=== PATIENT | female | born 1935 | race Caucasian/White ===

== ENCOUNTER 2018-06-19 22:53 | Emergency (ER) | payer OTHER ==
[2018-06-19] MEDS: SODIUM CHLORIDE 0.9% 1L BAG IV* (23:17)
[2018-06-19] MEDS: DEXAMETHASONE 10 MG/ML 1 ML INJ IV (23:17)
[2018-06-19 23:23] LABS: MODE ROOM AIR; MetHgb Venous 0.4 %; Sample Type Blood venous; Site VENOUS LINE; Venous COHb 0.1 %; Venous Fraction OxyHgb 43.2 %; Venous Oxygen Sat 43.4 mmHG (55.0-75.0); Venous Total Hemglobin 13.7 g/dl
[2018-06-19 23:27] LABS: ADD MAN DIFF? NO
[2018-06-19 23:30] LABS: WHITE BLOOD COUNT 14.8 10^3/ul (4.8-10.8)
[2018-06-19 23:30] LABS: ABNORMAL IP MESSAGE 1; BASOPHILS % 0.2 % (0.0-2.0); EOSINOPHILS # 0.1 10^3/ul (0.0-0.5); EOSINOPHILS % 0.7 % (0.0-7.0); HEMATOCRIT 42.8 % (37.0-47.0); HEMOGLOBIN 13.9 g/dl (12.0-16.0); LYMPHOCYTES # 5.2 10^3/ul (0.8-2.9); LYMPHOCYTES % 34.9 % (15.0-51.0); MEAN CORPUSCULAR HEMOGLOBIN 27.5 pg (29.0-33.0); MEAN CORPUSCULAR HGB CONC 32.5 g/dl (32.0-37.0); MEAN CORPUSCULAR VOLUME 84.8 fl (82.0-101.0); MEAN PLATELET VOLUME 10.8 fl (7.4-10.4); MONOCYTE # 0.8 10^3/ul (0.3-0.9); MONOCYTES % 5.3 % (0.0-11.0); NEUTROPHIL # 8.7 10^3/ul (1.6-7.5); NEUTROPHILS % 58.5 % (39.0-77.0); PLATELET COUNT 249 10^3/UL (140-415); RED BLOOD COUNT 5.05 10^6/ul (4.20-5.40); RED CELL DISTRIBUTION WIDTH 15.9 % (11.5-14.5)
[2018-06-19] MEDS: IPRATROPIUM (NEB) 0.5 MG/2.5 ML AMP INH (23:30)
[2018-06-19] MEDS: ALBUTEROL 0.5% (NEB) 2.5 MG/0.5 ML AMP INH (23:30)
[2018-06-19 23:36] LABS: POSITIVE DIFF @See below
[2018-06-19] MEDS: CEFTRIAXONE 1 GM/50 ML (PMX) 50 ML IVPB (23:40)
[2018-06-19 23:52] LABS: LACTIC ACID 2.4 mmol/L (0.5-2.0)
[2018-06-19 23:53] LABS: ALANINE AMINOTRANSFERASE 39 IU/L (13-69); ALBUMIN 4.3 g/dl (3.3-4.9); ALBUMIN/GLOBULIN RATIO 1.26; ALKALINE PHOSPHATASE 385 IU/L (42-121); ANION GAP 13 (5-13); ASPARTATE AMINO TRANSFERASE 56 IU/L (15-46); BILIRUBIN,INDIRECT 0.5 mg/dl (0-1.1); BILIRUBIN,TOTAL 0.5 mg/dl (0.2-1.3); BLOOD UREA NITROGEN 12 mg/dl (7-20); CALCIUM 9.4 mg/dl (8.4-10.2); CARBON DIOXIDE 28 mmol/L (21-31); CHLORIDE 96 mmol/L (97-110); CREATININE 0.72 mg/dl (0.44-1.00); GLUCOSE 132 mg/dl (70-220); POTASSIUM 3.2 mmol/L (3.5-5.1); SODIUM 137 mmol/L (135-144); TOTAL PROTEIN 7.7 g/dl (6.1-8.1)
[2018-06-20 00:02] LABS: TROPONIN-I < 0.012 ng/ml (0.000-0.120)
[2018-06-20] MEDS: AZITHROMYCIN 500MG/NS (PMX) 250 ML IV (00:21)
[2018-06-20] MEDS: DILTIAZEM 25 MG INJ IV ×2 (01:11→03:47)
[2018-06-20] MEDS: IPRATROPIUM (NEB) 0.5 MG/2.5 ML AMP INH (01:46)
[2018-06-20] MEDS: ALBUTEROL 0.5% (NEB) 2.5 MG/0.5 ML AMP INH (01:47)
[2018-06-20 01:56] LABS: LACTIC ACID 3.5 mmol/L (0.5-2.0)
[2018-06-20 03:37] LABS: LACTIC ACID 2.6 mmol/L (0.5-2.0)
== END 2018-06-20 10:39 | disposition short-term general hospital (02) ==
LOC: E/R 22:53
DX: J44.1 Chronic obstructive pulmonary disease with (acute) exacerbation (principal); A41.9 Sepsis, unspecified organism; J22 Unspecified acute lower respiratory infection; I10 Essential (primary) hypertension; J45.909 Unspecified asthma, uncomplicated; Z95.0 Presence of cardiac pacemaker
CPT/HCPCS: 36415; 71045; 80053; 82803; 83605; 84484; 85025; 87040; 94644; 94645; 96374; 96375; 96376; 99291-25